=== PATIENT | female | born 1970 | race Caucasian/White ===

== ENCOUNTER → 2016-11-10 | Outpatient (CLI) | payer OTHER | END | disposition home or self-care (01) | LOC: C.PAPS 13:31 | PROVIDERS: ATTEND Obstetrics & Gynecology | DX: Z12.4 Encounter for screening for malignant neoplasm of cervix (principal) ==

== ENCOUNTER → 2016-12-08 | Outpatient (CLI) | payer OTHER ==
--- NOTE | 2016-12-08 15:57 | DIAGNOSTIC IMAGING REPORT ---
PELVIC COMPLETE NON OB HISTORY: 46 years-old Female FEMALE PELVIC PAIN acute pelvic pain with pelvic cramping COMPARISON: None available TECHNIQUE: Multiple real-time sonographic images of the deep pelvic structures were obtained transabdominally and transvaginally assessing grayscale appearance, color and spectral flow. FINDINGS: TRANSABDOMINAL: Pelvic structures are not well seen. TRANSVAGINAL: Anteflexed uterus measures 7.6 x 3.7 x 5.2 cm and is within normal limits without myometrial mass lesion identified. Nonspecific endometrial calcifications are seen measuring up to 2 mm within the region of the lower uterine segment. Endometrium is normal, 0.4 cm. Right ovary not diagnostically visualized, obscured by bowel gas. Left ovary is also not well seen secondary to bowel gas. Left ovary measures approximately 2.0 x 1.1 x 1.6 cm with arterial inflow and venous outflow documented. No adnexal masses or lesions are identified. Mild amount of free pelvic fluid within the cul-de-sac. IMPRESSION: 1. Mildly limited study secondary to obscuring bowel gas with the right ovary not visualized. The left ovary is unremarkable without evidence of torsion. 2. Unremarkable sonographic appearance of the uterus. 3. Mild amount of free pelvic fluid, likely physiologic. The above report was generated using voice recognition software. It may contain grammatical, syntax or spelling errors. Electronically signed by: Jaxon Shelton M.D. 12/08/2016 3:55 PM Dictated Date/Time: 12/08/2016 3:51 PM
== END | disposition home or self-care (01) ==
LOC: C.ULTR 15:04
PROVIDERS: ATTEND Obstetrics & Gynecology
DX: R10.2 Pelvic and perineal pain (principal)

== ENCOUNTER → 2016-12-09 | Outpatient (CLI) | payer OTHER ==
--- NOTE | 2016-12-10 07:48 | MAMMOGRAPHY REPORT ---
BILATERAL DIGITAL SCREENING MAMMOGRAM TOMOSYNTHESIS WITH CAD: 12/09/2016 CLINICAL HISTORY: Routine screening. Patient has no complaints. TECHNIQUE: Breast tomosynthesis in addition to standard 2D mammography was performed. Current study was also evaluated with a Computer Aided Detection (CAD) system. COMPARISON: Comparison is made to exams dated: 04/10/2013 ultrasound, 04/10/2013 mammogram - [facility], 01/24/2009 mammogram, 03/28/2008 mammogram, and 03/28/2008 ultrasound - [facility]. BREAST COMPOSITION: The tissue of both breasts is heterogeneously dense, which may obscure small mas ses. FINDINGS: The parenchymal pattern is unchanged. No developing mass, architectural distortion or clus ter of suspicious microcalcifications is seen in either breast. IMPRESSION: ACR BI-RADS CATEGORY 2: BENIGN There is no mammographic evidence of malignancy. A 1 year screening mammogram is recommended. The pa tient will receive written notification of the results. Approximately 10% of breast cancers are not detected with mammography. A negative mammographic report should not delay biopsy if a clinically suggestive mass is present. Marissa Hayward M.D. ay/:12/09/2016 14:54:53 [place] Judge: Vielka Lowry, [facility] letter sent: Normal 1/2 BI-RADS Code: ACR BI-RADS Category 2: Benign
== END | disposition home or self-care (01) ==
LOC: C.MAMM 14:23
PROVIDERS: ATTEND Obstetrics & Gynecology
DX: Z12.31 Encounter for screening mammogram for malignant neoplasm of breast (principal)